=== PATIENT | male | born 1990 | race Caucasian/White ===

== ENCOUNTER 2018-12-23 16:00 | Emergency (ER) | payer OTHER ==
[~2018-12-23] VITALS: Ht 182.9 cm; Wt 79.4 kg
[2018-12-23 16:13] VITALS: BP 137/92
--- NOTE | 2018-12-23 16:22 | NUR ---
C/O RUN OUT OF MEDICATIONS, STATED DOCTOR OFFICE CLOSED TODAY, NEED MEDICATION REFILL. 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 DENIES N/V/D; SKIN IS PINK/WARM/DRY; AAOX4 WITH EVEN AND STEADY GAIT; LUNGS CLEAR BL; HR EVEN AND REGULAR; PT DENIES ANY FEVER, CP, SOB, OR COUGH AT THIS TIME; PATIENT STATES PAIN OF 7/10 AT THIS TIME; VSS; PATIENT POSITIONED FOR COMFORT; HOB ELEVATED; BEDRAILS UP X2; BED DOWN. ER MD MADE AWARE OF PT STATUS.
[2018-12-23] MEDS ORDERED: KETOROLAC 30 MG/ML VIAL IM ONE (16:30)
[2018-12-23 16:46] VITALS: BP 137/92
--- NOTE | 2018-12-23 16:47 | NUR ---
Patient discharged with v/s stable. Written and verbal after care instructions given and explained. Patient alert, oriented and verbalized understanding of instructions. Ambulatory with steady gait. All questions addressed prior to discharge. ID band removed. Patient advised to follow up with PMD. Rx of IBUPROFEN, NORCO given. Patient educated on indication of medication including possible reaction and side effects. Opportunity to ask questions provided and answered.
== END 2018-12-23 16:47 | disposition home or self-care (01) ==
LOC: MED 16:00
DX: G89.29 Other chronic pain (principal); M54.5 Low back pain; Z76.0 Encounter for issue of repeat prescription
CPT/HCPCS: 96372; 99283; J1885

== ENCOUNTER 2022-04-13 16:45 | Emergency (ER) | payer OTHER ==
[~2022-04-13] VITALS: Ht 182.9 cm; Wt 79.4 kg
[2022-04-13 16:55] VITALS: BP 126/74
[2022-04-13] MEDS ORDERED: NACL 0.9% 1,000 ML IV ONE (17:30)
[2022-04-13] MEDS ORDERED: KETOROLAC 15 MG/ML VIAL IVP ONE (17:30)
--- NOTE | 2022-04-13 17:35 | NUR ---
31YO MALE PT C/O JOINT AND L FLANK PAIN X4DAYS. REPORTS SUDDEN ONSET AND FEELING "WEAK/OLD". DENIES DYSURIA, N/V/D, CHEST PAIN OR SOB. PT AAOX4, HOB POSITIONED PER COMFORT. PMHX: KIDNEY FAILURE, PANCREATITIS ALLERGIES: TYLENOL, CODEINE
[2022-04-13 17:55] LABS: BASOPHILS % (AUTO) 0.3 % (0.0-2.0); EOSINOPHILS # (AUTO) 0.2 K/uL (0-0.4); EOSINOPHILS % (AUTO) 3.3 % (0.0-4.0); HEMATOCRIT 37.2 % (36-52); HEMOGLOBIN 11.9 g/dL (12.0-18.0); LYMPHOCYTES # (AUTO) 0.8 K/uL (2.0-11.5); LYMPHOCYTES % (AUTO) 11.1 % (20.5-51.1); MEAN CORPUSCULAR HEMOGLOBIN 24 pg (27-31); MEAN CORPUSCULAR HGB CONC 32 g/dL (33-37); MEAN CORPUSCULAR VOLUME 75.1 fL (80-94); MONOCYTES # (AUTO) 0.8 K/uL (0.8-1.0); MONOCYTES % (AUTO) 10.5 % (1.7-9.3); NEUTROPHILS # (AUTO) 5.6 K/uL (1.8-7.7); NEUTROPHILS % (AUTO) 74.8 % (42.2-75.2); PLATELET COUNT (AUTO) 392 K/uL (140-450); RED BLOOD CELL COUNT(AUTO) 4.95 MIL/uL (4.20-6.10); RED CELL DISTRIBUTION WIDTH 17.7 % (11.6-13.7); WHITE BLOOD COUNT (AUTO) 7.5 K/uL (4.8-10.8)
[2022-04-13 18:25] LABS: ALBUMIN 4.2 g/dL (3.4-5.0); ANION GAP 13.4 (8-16); ASPARTATE AMINOTRANSFERASE 15 U/L (15-37); CARBON DIOXIDE 27.3 mmol/L (21-32); CHLORIDE 102 mmol/L (98-107); CREATININE 0.9 mg/dL (0.6-1.3); GFR ARICAN-AMERICAN 127 mL/min (>90); GLUCOSE 100 mg/dL (74-106); POTASSIUM 3.7 mmol/L (3.5-5.1); SODIUM SERUM 139 mmol/L (136-145); TOTAL BILIRUBIN 0.5 mg/dL (0.0-1.0); UREA NITROGEN, BLOOD 21 mg/dL (7-18)
[2022-04-13] MEDS: HYDROcodone/APAP 5/325 MG 1 TAB TAB PO ONE ×2 (19:11→19:19)
--- NOTE | 2022-04-13 19:21 | NUR ---
REPORT GIVEN TO CHILO WARREN. TRANSFER OF CARE AT THIS TIME
[2022-04-13 20:47] LABS: APPEARANCE,URINE CLEAR (CLEAR); BILIRUBIN,URINE NEGATIVE (NEGATIVE); BLOOD, URINE NEGATIVE (NEGATIVE); COLOR,URINE YELLOW (YELLOW); LEUKOCYTE ESTERASE ,URINE NEGATIVE (NEGATIVE); NITRITE, URINE NEGATIVE (NEGATIVE); PH,URINE 5.5 (5.0-9.0); UGLUCOSE NEGATIVE (NEGATIVE)
[2022-04-13 21:47] VITALS: BP 111/74
--- NOTE | 2022-04-13 21:49 | NUR ---
Patient discharged with v/s stable. Written and verbal after care instructions given and explained. Patient verbalized understanding. Ambulatory with steady gait. All questions addressed prior to discharge. Advised to follow up with PMD.
--- NOTE | 2022-04-15 10:42 | NUR ---
CONFIRMED WITH NURSE, NS INFUSION END TIME 1744 04/13/22.
== END 2022-04-13 21:39 | disposition home or self-care (01) ==
LOC: MED 16:45
DX: M25.572 Pain in left ankle and joints of left foot (principal); M25.571 Pain in right ankle and joints of right foot; M25.512 Pain in left shoulder; M25.511 Pain in right shoulder; M25.522 Pain in left elbow; M25.521 Pain in right elbow; M25.542 Pain in joints of left hand; M25.541 Pain in joints of right hand; M25.562 Pain in left knee; M25.561 Pain in right knee; K85.90 Acute pancreatitis without necrosis or infection, unspecified; N19 Unspecified kidney failure; Z72.89 Other problems related to lifestyle; Z88.5 Allergy status to narcotic agent; Z90.49 Acquired absence of other specified parts of digestive tract
CPT/HCPCS: 36415; 80053; 81003; 82550; 84484; 85025; 85379; 87491; 93005; 96361; 96374; 99284; J1885; J7030